=== PATIENT | male | born 1965 | race Caucasian/White ===

== ENCOUNTER 2017-02-17 09:44 | Emergency (ER) | payer BC ==
[~2017-02-17 09:44] MED LIST: MULTIVIT/MIN PO
[2017-02-18] MEDS ORDERED: ARMOUR THYRO120 MG PO (11:18)
[2017-02-18] MEDS ORDERED: PRIN5 PO (11:18)
[2017-02-18] MEDS ORDERED: HCTZ25B PO (11:18)
[2017-02-18] MEDS ORDERED: PCET PO (15:13)
== END 2017-02-17 12:17 | disposition home or self-care (01) ==
LOC: ER 09:44
PROC: 0HQFXZZ Repair Right Hand Skin, External Approach (ICD-10-PCS; principal; 2017-02-17)
DX: S62.634B Displaced fracture of distal phalanx of right ring finger, initial encounter for open fracture (principal); I10 Essential (primary) hypertension; Z79.899 Other long term (current) drug therapy; W23.0XXA Caught, crushed, jammed, or pinched between moving objects, initial encounter
CPT/HCPCS: 73140-RT; 90471; 90714; 99283